=== PATIENT | female | born 1985 | race Caucasian/White ===

== ENCOUNTER 2020-03-22 10:04 | Outpatient (REF) | payer MEDICAID, SELFPAY ==
[2020-03-22 14:15] LABS: Albumin Level 4.3 g/dL (3.5-5.0); Calcium 9.5 mg/dL (8.4-10.2); Estimated Glomerular Filt Rate > 60; Phosphorus 4.5 mg/dL (2.7-4.5)
[2020-03-22 14:39] LABS: Vitamin D 25-OH Total 27.6 ng/mL (>30)
[2020-03-23 16:52] LABS: Calcium (PTHI) 9.7 mg/dL (8.6-10.2); PTHI 37 pg/mL (14-64)
[2020-03-26 22:48] LABS: Estradiol Ultra Sensitive 58 pg/mL
[2020-03-29 14:37] LABS: Estradiol Free 1.06 pg/mL; Estradiol, Ultrasensitive 58 pg/mL
== END 2020-03-22 10:05 | disposition home or self-care (01) ==
LOC: CF 10:04
PROVIDERS: PCP Internal Medicine; Visit Provider Internal Medicine
DX: E23.0 Hypopituitarism (principal); E04.2 Nontoxic multinodular goiter; E55.9 Vitamin D deficiency, unspecified; M81.0 Age-related osteoporosis without current pathological fracture
CPT/HCPCS: 36415; 82040; 82306; 82310; 82565; 82670; 83970; 84100; 99212

== ENCOUNTER → 2020-09-20 08:37 | Outpatient (BNVA) | payer MEDICAID, SELFPAY | PROVIDERS: Visit Provider Internal Medicine ==